=== PATIENT | female | born 1960 | race Caucasian/White ===

== ENCOUNTER 2017-11-14 13:57 | Emergency (ER) | payer OTHER ==
[2017-11-14] MEDS: IBUPROFEN 200 MG TAB PO (16:27)
== END 2017-11-14 19:03 | disposition home or self-care (01) ==
LOC: FTE 13:57
DX: S92.512A Displaced fracture of proximal phalanx of left lesser toe(s), initial encounter for closed fracture (principal); J45.909 Unspecified asthma, uncomplicated; I10 Essential (primary) hypertension; W23.0XXA Caught, crushed, jammed, or pinched between moving objects, initial encounter; Y92.9 Unspecified place or not applicable; Z79.84 Long term (current) use of oral hypoglycemic drugs
CPT/HCPCS: 73630; 73630-LT; 99283-25